=== PATIENT | female | born 1965 | race Caucasian/White ===

== ENCOUNTER 2024-04-04 09:45 | Emergency (ER) | payer OTHER, SELFPAY ==
--- NOTE | ~2024-04-04 | CT_ITS ---
EXAMINATION: CT ABDOMEN AND PELVIS WITHOUT AND WITH CONTRAST CLINICAL INFORMATION: GI bleeding COMPARISON: None available. TECHNIQUE: Multidetector volumetric imaging was performed of the abdomen and pelvis before and after the IV administration of 80 mL of Omnipaque 350 intravenous contrast. Sagittal and coronal reformatted images were obtained on the technologist's workstation. This CT examination was performed using dose optimization techniques as appropriate, variously including the following: *Automated exposure control *Adjustment of mA and/or kV according to patient size (this includes techniques or standardized protocols for targeted exams where dose is matched to indication/reason for exam; i.e. extremities or head) *Use of iterative reconstruction technique DLP: 1149 mGy-cm FINDINGS: LUNG BASES: The visualized lung bases are unremarkable. LIVER, GALLBLADDER, AND BILIARY TREE: The liver is normal in size, shape, and attenuation. No focal hepatic lesion or biliary ductal dilatation is present. The gallbladder is unremarkable with no evidence of radiopaque gallstones, gallbladder wall thickening, or obvious pericholecystic inflammatory changes. PANCREAS: Unremarkable SPLEEN: Unremarkable ADRENAL GLANDS: Unremarkable KIDNEYS AND URETERS: There is cyst in the lower pole of right kidney measured 4.4 x 3.8 cm left kidney revealed parapelvic cysts, no hydronephrosis. BLADDER: Unremarkable GASTROINTESTINAL TRACT: The small and large bowel are unremarkable. The appendix is unremarkable with appendicoliths. There are no evidence of extravasation of contrast on delayed images ABDOMINAL WALL: No significant hernia is appreciated. LYMPH NODES: Normal VASCULAR: Unremarkable PELVIC VISCERA: Unremarkable OSSEOUS STRUCTURES: There are degenerative changes at the level of L3-4, L4-5 and L5-S1 with grade 1 anterior listhesis of L3 over L4. CT/CT gi bleed abd pel wo/w IVcon IMPRESSION: 1. No evidence of active bleeding. 2. Bilateral renal cysts. 3. Appendicoliths in the appendix. 4. Degenerative changes in the lumbar spine. Fleischner guidelines were followed. Electronically signed by: Мария Puentes MD 04/04/2024 03:28 PM EDT
[2024-04-04 09:54] VITALS: BP 135/69; PULSE 77; RESP 16; TEMP 37; O2SAT 99; BMI 24.0
[2024-04-04 10:26] LABS: MANUAL DIFF FLAG NO
[2024-04-04 10:31] LABS: Basophils Percent Auto 0.7 % (0-2); Eosinophils Percent Auto 0.4 % (0-4); Hematocrit 41.1 % (37.0-47.0); Hemoglobin 13.4 g/dl (12.0-16.0); Imm Gran Abs Auto 0.01 X10*3/uL (0.00-0.03); Imm Gran Pct Auto 0.2 % (0.0-0.4); Lymphocytes Absolute Auto 1.1 X10*3/uL (1.2-4.9); Lymphocytes Percent Auto 24.7 % (20-40); Mean Corpuscular HGB Conc 32.6 g/dl (31.0-35.0); Mean Corpuscular Volume 92.2 fL (80.0-98.0); Mean Platelet Volume 11.9 fL (9.4-12.3); Monocytes Absolute Auto 0.3 X10*3/uL (0.1-1.2); Monocytes Percent Auto 5.6 % (2-11); Neutrophils Absolute Auto 3.1 x10*3/uL (2.0-8.3); Neutrophils Percent Auto 68.4 % (45-73); Platelet Count 179 X10*3/uL (160-400); Red Blood Count 4.46 X10*6/uL (4.20-5.50); Red Cell Distribution Width 13.2 % (11.0-16.0); White Blood Count 4.5 X10*3/uL (4.8-10.8)
[2024-04-04 10:37] LABS: INTERNATIONAL NORM RATIO 0.9 (0.9-1.1); Prothrombin Time 10.9 SEC (10.9-12.4)
[2024-04-04 10:39] LABS: Partial Thromboplastin Time 34.1 SEC (26.0-36.8)
[2024-04-04 10:47] LABS: Alanine Aminotransferase 11 U/L (0-31); Albumin Level 4.4 g/dL (3.5-5.0); Alkaline Phosphatase 73 U/L (39-117); Anion Gap 11 (12-20); Aspartate Amino Transferase 15 U/L (5-31); Bilirubin Direct 0.2 mg/dL (0.0-0.5); Bilirubin Total 0.4 mg/dL (0.0-1.0); Blood Urea Nitrogen 13 mg/dL (9-16); Calcium 9.5 mg/dL (8.4-10.2); Carbon Dioxide 28 mmol/L (22-29); Chloride 109 mmol/L (96-108); Creatinine Clr Calc Pharmacy 81.2; Estimated Glomerular Filt Rate > 60; Glucose Random 99 mg/dL (60-115); Lipase 25 U/L (8-78); Potassium 5.5 mmol/L (3.3-5.1); Sodium 142 mmol/L (135-145)
--- NOTE | 2024-04-04 11:22 | ED_ITS ---
HPI - GI Bleed General Chief complaint: GI Bleed Stated complaint: colon bleeding Time Seen by Provider: 04/04/24 11:06 Source: patient Mode of arrival: ambulatory Limitations: no limitations History of Present Illness ED Provider: ADAM HENAO Narrative: 58 yo female with no sig PMH prior colonoscopy in [facility] age 53 - benign polyp no other known pathology and work up was negative told to come back in 5 years. She has no blood thinners or aspirin use. She has no abdominal pain did have recent change in diet for the past several months clean diet and had intentional weight loss. She notes yesterday saw a large bloody clot in her bowel movement but no pain. Today saw brb per rectum in toilet which was large. This has never happened before. No travel, food exposures, change in medications, abx use. She has moved here to [place] and has no PCP or GI doctor. No known family history of colon or rectal cancer MD complaint: gross hematochezia Onset (ago): day(s) (1) Severity: mild Relieving factors: none Exacerbating factors: none Associated symptoms: other (fatigue) Treatments Prior to Arrival: none Related Data Allergies Allergy/AdvReac Type Severity Reaction Status Date / Time latex Allergy Rash Verified 04/04/24 09:59 Review of Systems 2 Review of Systems: Constitutional : pos Weight loss, No Fever, No Chills, pos fatigue ENT/Mouth : No sore throat, No Rhinorrhea Eyes: No Swelling, No Redness Cardiovascular : No Chest Pain, No SOB, NoEdema Respiratory : No Cough, No Sputum, No Wheezing Gastrointestinal : no Nausea, no Vomiting, no Diarrhea, no abdominal Pain, pos Hematochezia, No Melena Genitourinary : No Dysuria, No Urinary Frequency, No Hematuria, No Urgency Musculoskeletal : No joint pain, No Myalgias, No Joint Swelling Skin : No Skin Lesions, No rash Neuro : No Weakness, No Numbness, No Dizziness, No Headache Psych : No Anxiety/Panic, No Depression All other systems reviewed and are negative. [facility] Past Medical History Attestation statement: The following information was validated with the patient. Source: old records reviewed Medical History No pertinent past medical history Social History Social History (Updated 04/04/24 @ 11:40 by Meche Kendall DO) Patient Tobacco Use Status: Never used Tobacco Smoked in Last 30 Days: No Advance Directives: No Advance Directives Information Provided: No Do you have a plan to hurt others: No Plan Patient : No Physical Exam 2 Vital Signs: Vital Signs: Last Vital Signs Temp 98.6 F 04/04/24 09:54 Pulse 76 04/04/24 15:12 Resp 14 04/04/24 15:12 BP 109/71 04/04/24 15:12 Pulse Ox 99 04/04/24 15:12 O2 Del Method Room Air 04/04/24 15:12 BMI result Body Mass Index 24.0 Appearance: Alert. Oriented X3. No acute distress. Eyes: Pupils equal, round and reactive to light. ENT: Pharynx normal. Neck: Normal inspection. Neck supple. CVS: Normal heart rate and rhythm. Pulses normal. Respiratory: No respiratory distress. Breath sounds normal. Abdomen: Soft and non-tender. Rectal: no bleeding hemorrhoids, light brown stool on finger Skin: Skin warm and dry. Normal skin color. Normal skin turgor. Extremities: No lower extremity edema. No calf ttp Neuro: Oriented X 3. No motor deficit. No sensory deficit. Medications Administered Discontinued Medications Generic Name Dose Route Start Last Admin Trade Name Freq PRN Reason Stop Dose Admin Iohexol 100 ml 04/04/24 12:13 04/04/24 12:13 Iohexol 350 Mg/Ml 100 Ml Infus..Btl IV 04/04/24 12:14 85 ml ONCE ONE Administration Medical Decision Making Medical Decision Making [facility] Narrative: 58 yo female with no sig PMH here with c/o brb and clot since yesterday x 2 with some fatigue no abdominal pain prior colonoscopy 5 years ago in [place] that was not abnormal other than 2 benign polyps no fam hx of colon or rectal cancer. At this time CBC x 2, CT scan for GI bleed protocol possible diverticular bleed vs mass vs colitis. Patient did have beets on a salad could be due to beets as well Differential Diagnosis Differential Diagnoses: The differential diagnosis associated with the presentation includes diverticular bleed, colitis, mass Admission/Observation Consideration of admission/observation: Escalation of care including admission/observation considered repeat CBC negative, guiac negative CT scan no acute cause can be DC home no bleeding here. Lab Data [facility] Lab Attestation statement: I reviewed the patient's lab results. 04/04/24 14:08 04/04/24 10:19 Labs: Lab Results 04/04/24 04/04/24 04/04/24 Range/Units 10:19 11:31 14:08 WBC 4.5 L 5.1 (4.8-10.8) X10*3/uL RBC 4.46 4.34 (4.20-5.50) X10*6/uL Hgb 13.4 13.3 (12.0-16.0) g/dl Hct 41.1 39.5 (37.0-47.0) % MCV 92.2 91.0 (80.0-98.0) fL MCH 30.0 30.6 (27.0-33.0) pg MCHC 32.6 33.7 (31.0-35.0) g/dl RDW 13.2 13.1 (11.0-16.0) % Plt Count 179 176 (160-400) X10*3/uL MPV 11.9 11.8 (9.4-12.3) fL Immature Gran % (Auto) 0.2 (0.0-0.4) % Neut % (Auto) 68.4 (45-73) % Lymph % (Auto) 24.7 (20-40) % Forrest % (Auto) 5.6 (2-11) % Eos % (Auto) 0.4 (0-4) % Baso % (Auto) 0.7 (0-2) % Lymph # (Auto) 1.1 L (1.2-4.9) X10*3/uL Forrest # (Auto) 0.3 (0.1-1.2) X10*3/uL Eos # (Auto) 0.0 (0.0-0.4) X10*3/uL Baso # (Auto) 0.0 (0.0-0.2) X10*3/uL Abs Immat Gran (auto) 0.01 (0.00-0.03) X10*3/uL Absolute Neuts (auto) 3.1 (2.0-8.3) x10*3/uL Absolute Nucleated RBC 0.000 0.000 (0.0-0.012) X10*3/uL Nucleated RBC % (auto) 0.0 0.0 (0.0-0.2) /100WBC PT 10.9 (10.9-12.4) SEC INR 0.9 (0.9-1.1) APTT 34.1 (26.0-36.8) SEC Sodium 142 (135-145) mmol/L Potassium 5.5 H (3.3-5.1) mmol/L Chloride 109 H (96-108) mmol/L Carbon Dioxide 28 (22-29) mmol/L Anion Gap 11 L (12-20) BUN 13 (9-16) mg/dL Creatinine 0.78 (0.5-1.4) mg/dL Estim Creat Clear Calc 81.2 Estimated GFR > 60 Random Glucose 99 (60-115) mg/dL Calcium 9.5 (8.4-10.2) mg/dL Total Bilirubin 0.4 (0.0-1.0) mg/dL Direct Bilirubin 0.2 (0.0-0.5) mg/dL AST 15 (5-31) U/L ALT 11 (0-31) U/L Alkaline Phosphatase 73 (39-117) U/L Total Protein 7.0 (6.5-8.0) g/dL Albumin 4.4 (3.5-5.0) g/dL Lipase 25 (8-78) U/L Stool Occult Blood NEGATIVE (NEGATIVE) Blood Type A Positive Antibody Screen NEGATIVE Independent Interpretation I performed an independent interpretation of an: CT Scan (no source of bleeding no colitis) Radiology Impression Discussion of test interpretation with radiology: I have reviewed the radiologist's reading. Independent Historian Clinical information obtained from an independent historian. History obtained from or confirmed by: Spouse Discharge Plan Discharge Clinical Impression: Lower gastrointestinal hemorrhage Patient Disposition: Home, Self-Care Instructions: Gastrointestinal Bleeding (ED) Additional Instructions: repeat blood counts no drop labs reassuring blood type A POS please follow up and contact the GI doctor listed below return for any worsening symptoms, bleeding, pain weakness or any other concerns. avoid aspirin FINDINGS: LUNG BASES: The visualized lung bases are unremarkable. LIVER, GALLBLADDER, AND BILIARY TREE: The liver is normal in size, shape, and attenuation. No focal hepatic lesion or biliary ductal dilatation is present. The gallbladder is unremarkable with no evidence of radiopaque gallstones, gallbladder wall thickening, or obvious pericholecystic inflammatory changes. PANCREAS: Unremarkable SPLEEN: Unremarkable ADRENAL GLANDS: Unremarkable KIDNEYS AND URETERS: There is cyst in the lower pole of right kidney measured 4.4 x 3.8 cm left kidney revealed parapelvic cysts, no hydronephrosis. BLADDER: Unremarkable GASTROINTESTINAL TRACT: The small and large bowel are unremarkable. The appendix is unremarkable with appendicoliths. There are no evidence of extravasation of contrast on delayed images ABDOMINAL WALL: No significant hernia is appreciated. LYMPH NODES: Normal VASCULAR: Unremarkable PELVIC VISCERA: Unremarkable OSSEOUS STRUCTURES: There are degenerative changes at the level of L3-4, L4-5 and L5-S1 with grade 1 anterior listhesis of L3 over L4. CT/CT gi bleed abd pel wo/w IVcon IMPRESSION: 1. No evidence of active bleeding. 2. Bilateral renal cysts. 3. Appendicoliths in the appendix. 4. Degenerative changes in the lumbar spine. Referrals: [facility] [Provider Group] Print Language: Moldovan
[2024-04-04 11:43] LABS: OBS Int Ctl Valid YES; OBS1 NEGATIVE (NEGATIVE)
--- NOTE | 2024-04-04 12:02 | PC.NURSE ---
20gIV placed in the left AC - patient waiting to CT to be completed at this time. no sob/wob noted. respirations even/unlabored. partner bedside for support. plan of care ongoing. call knowles placed within reach.
[2024-04-04] MEDS: iohexoL 350 MG/ML 100 ML INFUS..BTL IV (12:13)
--- NOTE | 2024-04-04 12:15 | PC.NURSE ---
pt to CT at this time.
--- NOTE | 2024-04-04 14:08 | PC.NURSE ---
repeat labs obtained/sent to lab.
[2024-04-04 14:14] LABS: Hematocrit 39.5 % (37.0-47.0); Hemoglobin 13.3 g/dl (12.0-16.0); Mean Corpuscular HGB Conc 33.7 g/dl (31.0-35.0); Mean Corpuscular Hemoglobin 30.6 pg (27.0-33.0); Mean Platelet Volume 11.8 fL (9.4-12.3); Platelet Count 176 X10*3/uL (160-400); Red Blood Count 4.34 X10*6/uL (4.20-5.50); Red Cell Distribution Width 13.1 % (11.0-16.0); White Blood Count 5.1 X10*3/uL (4.8-10.8)
[2024-04-04 15:12] VITALS: BP 109/71; PULSE 76; RESP 14; O2SAT 99
--- NOTE | 2024-04-04 15:35 | PC.NURSE ---
pt continues to rest comfortably in no apparent distress. no episodes of n/v/d. still denies abd pain. no sob/wob noted. respirations remain even/unlabored. partner bedside for support. plan of care ongoing. call knowles placed within reach.
[2024-04-04 15:45] VITALS: BP 109/71; PULSE 76; RESP 14; TEMP 37.1; O2SAT 99
== END 2024-04-04 15:52 | disposition home or self-care (01) ==
PROVIDERS: Emergency Provider Emergency Medicine
DX: K92.2 Gastrointestinal hemorrhage, unspecified (principal)
CPT/HCPCS: 36415; 74178; 80048; 80076; 82272; 83690; 85025; 85027; 85610; 85730; 86850; 86900; 86901; 99284; Q9967